=== PATIENT | female | born 1935 | race African-American/Black ===

== ENCOUNTER 2023-10-05 23:32 | Emergency (ER) | payer MEDICARE, MEDICAID ==
[~2023-10-05] VITALS: Ht 160 cm; Wt 74.0 kg
[2023-10-05 23:49] VITALS: O2SAT 98
[2023-10-06] MEDS ORDERED: ACET-2708 MT ×2 (00:22→03:31)
[2023-10-06] MEDS: ACETAMINOPHEN 325MG TABLET PO ONE (01:26)
[2023-10-06 04:15] VITALS: BP 101/69; PULSE 61; RESP 18; TEMP 36.72516; O2SAT 98
== END 2023-10-06 04:18 | disposition home or self-care (01) ==
LOC: ER 23:32
DX: M79.606 Pain in leg, unspecified (principal); Z00.00 Encounter for general adult medical examination without abnormal findings; V49.60XA Unspecified car occupant injured in collision with unspecified motor vehicles in traffic accident, initial encounter; Y93.89 Activity, other specified; Y92.89 Other specified places as the place of occurrence of the external cause; Y99.8 Other external cause status
CPT/HCPCS: 73590; 99283; 99284